=== PATIENT | male | born 1990 | race Caucasian/White ===

== ENCOUNTER 2017-07-09 21:03 | Inpatient (IN) | payer OTHER ==
--- NOTE | 2017-07-09 22:19 | ED ---
Psych HPI - General Chief Complaint: Psychiatric Symptoms Stated Complaint: Mental health/Suicide attempt Time Seen by Provider: 07/09/17 21:24 Source: patient, family Mode of arrival: ambulatory - History of Present Illness Initial Comments: This 26-year-old white male presents with a complaint of some depression. It is been present over the last month or so. It is been worse over the past 3 days. The ex-girlfriend and his child's mother relates that she went over to his house yesterday and found a gun that was not loaded but there was in remission close by. She then went over there tonight and found that the car was running in the garage that was closed. He apparently made a makeshift noose as well. He does complain of depression which is been worse over the last day and complains of suicidal ideations with obvious plan. He is very truthful on evaluation and not very talkative had much of history is obtained per his ex-girlfriend. He was tried on Cymbalta about this apparently seemed to make his symptoms worse. There's been no drugs or alcohol. His abdomen multiple life stressors including breakup with his ex-girlfriend and work- related issues. He denies any medical complaints currently. - Related Data Home Medications Medication Instructions Recorded Confirmed Citalopram Hydrobromide [CeleXA] 20 mg PO HS 07/09/17 07/09/17 Allergies Allergy/AdvReac Type Severity Reaction Status Date / Time No Known Allergies Allergy Verified 07/09/17 22:21 Review of Systems ROS Statement: Those systems with pertinent positive or pertinent negative responses have been documented in the HPI. ROS Other: All systems not noted in ROS Statement are negative. Past Medical History Past Medical History: No Reported History History of Any Multi-Drug Resistant Organisms: None Reported Past Surgical History: No Surgical Hx Reported Past Psychological History: Depression Smoking Status: Current some day smoker Past Alcohol Use History: None Reported Past Drug Use History: None Reported General Exam - General Exam Comments Initial Comments: GENERAL: The patient is well nourished and well hydrated. VITAL SIGNS: Heart rate, blood pressure, respiratory rate reviewed as recorded in nurse's notes. EYES: Pupils are round and reactive. Extraocular movements are intact. No conjunctival / lid redness or swelling. ENT: No external evidence of injury, swelling, or ecchymosis. Airway is patent. Throat is clear. NECK: Nontender. No swelling or evidence of injury. No subcutaneous emphysema. Trachea is midline. No thyroid mass. HEART: Regular rate and rhythm. Good peripheral pulses. LUNGS/CHEST: Breath sounds clear and equal bilaterally. No rales, rhonchi, or wheezes. No ecchymosis, subcutaneous emphysema, or tenderness. ABDOMEN: Abdomen soft without tenderness. No palpable masses or organomegaly. No peritoneal signs. No abdominal wall swelling or ecchymosis. EXTREMITIES: No extremity tenderness. Normal muscle tone and function. No thoracolumbar tenderness. NEUROLOGIC: Sensation is grossly intact. Cranial nerve exam reveals face is symmetrical, tongue is midline, speech is clear. SKIN: No abrasions or ecchymosis is noted. No induration or masses noted. PSYCHIATRIC: Alert and oriented. Patient is tearful and there is a very flat affect. Limitations: no limitations Course Vital Signs 07/09/17 21:14 Temperature 98.2 F Pulse Rate 84 Respiratory 18 Rate Blood Pressure 138/81 O2 Sat by Pulse 98 Oximetry Medical Decision Making - Medical Decision Making The patient was seen and examined. All diagnostics were reviewed. Is felt as though he would benefit from further psychiatric evaluation and treatment. He is cleared for further psychiatric intervention. The case is discussed with the psychiatric nurse and they would like to admit him to the psychiatric floor for further treatment. Is felt as though this is an excellent plan. Is felt as though he does need significant psychiatric care at this time. - Lab Data Lab Results 07/09/17 Range/Units 21:50 Urine Opiates Screen Not Detected (NotDetected) Ur Oxycodone Screen Not Detected (NotDetected) Urine Methadone Screen Not Detected (NotDetected) Ur Propoxyphene Screen Not Detected (NotDetected) Ur Barbiturates Screen Not Detected (NotDetected) U Tricyclic Antidepress Not Detected (NotDetected) Ur Phencyclidine Scrn Not Detected (NotDetected) Ur Amphetamines Screen Not Detected (NotDetected) U Methamphetamines Scrn Not Detected (NotDetected) U Benzodiazepines Scrn Not Detected (NotDetected) Urine Cocaine Screen Not Detected (NotDetected) U Marijuana (THC) Screen Not Detected (NotDetected) Disposition Clinical Impression: Major depression, Suicidal ideation Disposition: ADMITTED IP TO THIS HOSP Condition: Fair Time of Disposition: 00:35 Decision Date: 07/10/17 Decision Time: 00:35
[2017-07-10] MEDS ORDERED: ACETAMINOPHEN TAB 325 MG TAB PO PRN (04:44)
[2017-07-10] MEDS ORDERED: MAG HYDROX/AL HYDROX/SIMETH 30 ML CUP PO PRN (04:44)
[2017-07-10] MEDS ORDERED: MAGNESIUM HYDROXIDE 2,400 MG/10 ML CUP PO PRN (04:44)
[2017-07-10] MEDS: NICOTINE 7MG/24HR PATCH TRANSDERM SCH (08:44)
[2017-07-10 09:31] LABS: Basophils % (A) 0 %; CH 28.7; CHCM 34.4; Eosinophils # (A) 0.1 k/uL (0-0.7); Eosinophils % (A) 1 %; HCT 40.1 % (39.0-53.0); HDW 2.51; HGB 13.2 gm/dL (13.0-17.5); Luc # (Auto) 0.14; Luc % (Auto) 2; Lymphocytes # (A) 1.7 k/uL (1.0-4.8); Lymphocytes % (A) 28 %; MCH 27.6 pg (25.0-35.0); MCHC 32.9 g/dL (31.0-37.0); MCV 83.8 fL (80.0-100.0); Mean Platelet Volume 8.6; Monocytes # (A) 0.3 k/uL (0-1.0); Monocytes % (A) 4 %; Neutrophils % (A) 64 %; RBC 4.78 m/uL (4.30-5.90); RDW 14.6 % (11.5-15.5); WBC 6.2 k/uL (3.8-10.6); WBC (Perox) 5.98
[2017-07-10 09:40] LABS: ALT 31 U/L (21-72); AST 18 U/L (17-59); Alkaline Phosphatase 35 U/L (38-126); Anion Gap 9 mmol/L; Blood Urea Nitrogen 11 mg/dL (9-20); Calcium 9.3 mg/dL (8.4-10.2); Carbon Dioxide 28 mmol/L (22-30); Chloride 106 mmol/L (98-107); Glucose 92 mg/dL (74-99); Non-African American GFR(MDRD) >60 (>60 ml/min/1.73 sqM); Sodium 143 mmol/L (137-145); Total Bilirubin 0.4 mg/dL (0.2-1.3); Total Protein 7.1 g/dL (6.3-8.2)
[2017-07-10] MEDS: LORazepam 1 MG TAB PO PRN ×2 (11:04→19:58)
[2017-07-10] MEDS: CITALOPRAM HYDROBROMIDE 20 MG TAB PO SCH (19:57)
--- NOTE | 2017-07-10 20:28 | P.CONS ---
History of Present Illness - Reason for Consult Consult date: 07/10/17 - Chief Complaint Severe depression. - History of Present Illness This is a constant a 26-year-old white male who has been struggling with deek. He is somewhat of a p chest pain. Cymbalta has been used in the pas no other typical chronic medical illness no substance abuse stated.I am consulted for medical H&P and management. Review of Systems Constitutional: Denies chills, Denies fever Eyes: denies blurred vision, denies pain Ears, nose, mouth and throat: Denies headache, Denies sore throat Cardiovascular: Denies chest pain, Denies shortness of breath Musculoskeletal: Denies myalgias Integumentary: Denies pruritus, Denies rash Neurological: Denies numbness, Denies weakness Psychiatric: Reports as per HPI Past Medical History Past Medical History: No Reported History History of Any Multi-Drug Resistant Organisms: None Reported Past Surgical History: No Surgical Hx Reported Smoking Status: Current some day smoker Medications and Allergies Home Medications Medication Instructions Recorded Confirmed Type Citalopram Hydrobromide [CeleXA] 20 mg PO HS 07/09/17 07/10/17 History Allergies Allergy/AdvReac Type Severity Reaction Status Date / Time No Known Allergies Allergy Verified 07/10/17 04:38 Physical Exam Vitals: Vital Signs Temp Pulse Pulse Resp BP BP Pulse Ox 07/10/17 00:51 98.1 F 75 16 126/74 99 07/10/17 00:41 98.2 F 82 16 129/79 99 07/09/17 21:14 98.2 F 84 18 138/81 98 - Constitutional General appearance: no acute distress - EENT Eyes: EOMI - Neck Neck: no lymphadenopathy - Respiratory Respiratory: bilateral: CTA - Cardiovascular Rhythm: regular Heart sounds: normal: S1, S2 - Gastrointestinal General gastrointestinal: soft, tenderness - Neurologic Neurologic: CNII-XII intact, focal deficits - Psychiatric Psychiatric: A&O x's 3, appropriate affect Results CBC & Chem 7: 07/10/17 08:47 07/10/17 08:47 Labs: Abnormal Lab Results - Last 24 Hours (Table) 07/10/17 Range/Units 08:47 Alkaline Phosphatase 35 L (38-126) U/L Assessment and Plan (1) Major depression Status: Acute (2) Suicidal ideation Status: Acute Plan: Given his actions, he is appropriately admitted to the mental health unit. We will follow appropriately. Reconcile Medications from medical perspective We'll continue to follow appropriate
--- NOTE | 2017-07-10 22:14 | P.HP ---
Psychiatric H&P - . H&P Date: 07/10/17 History & Physical: Allergies Allergy/AdvReac Type Severity Reaction Status Date / Time No Known Allergies Allergy Verified 07/10/17 04:38 Vital Signs Temp 98.1 F 07/10/17 00:51 Pulse 75 07/10/17 00:51 Resp 16 07/10/17 00:51 BP 126/74 07/10/17 00:51 Pulse Ox 99 07/10/17 00:51 Laboratory Last Values WBC 6.2 k/uL (3.8-10.6) 07/10/17 08:47 RBC 4.78 m/uL (4.30-5.90) 07/10/17 08:47 Hgb 13.2 gm/dL (13.0-17.5) 07/10/17 08:47 Hct 40.1 % (39.0-53.0) 07/10/17 08:47 MCV 83.8 fL (80.0-100.0) 07/10/17 08:47 MCH 27.6 pg (25.0-35.0) 07/10/17 08:47 MCHC 32.9 g/dL (31.0-37.0) 07/10/17 08:47 RDW 14.6 % (11.5-15.5) 07/10/17 08:47 Plt Count 226 k/uL (150-450) 07/10/17 08:47 Neutrophils % 64 % 07/10/17 08:47 Lymphocytes % 28 % 07/10/17 08:47 Monocytes % 4 % 07/10/17 08:47 Eosinophils % 1 % 07/10/17 08:47 Basophils % 0 % 07/10/17 08:47 Neutrophils # 4.0 k/uL (1.3-7.7) 07/10/17 08:47 Lymphocytes # 1.7 k/uL (1.0-4.8) 07/10/17 08:47 Monocytes # 0.3 k/uL (0-1.0) 07/10/17 08:47 Eosinophils # 0.1 k/uL (0-0.7) 07/10/17 08:47 Basophils # 0.0 k/uL (0-0.2) 07/10/17 08:47 Urine Opiates Screen Not Detected (NotDetected) 07/09/17 21:50 Ur Oxycodone Screen Not Detected (NotDetected) 07/09/17 21:50 Urine Methadone Screen Not Detected (NotDetected) 07/09/17 21:50 Ur Propoxyphene Screen Not Detected (NotDetected) 07/09/17 21:50 Ur Barbiturates Screen Not Detected (NotDetected) 07/09/17 21:50 U Tricyclic Antidepress Not Detected (NotDetected) 07/09/17 21:50 Ur Phencyclidine Scrn Not Detected (NotDetected) 07/09/17 21:50 Ur Amphetamines Screen Not Detected (NotDetected) 07/09/17 21:50 U Methamphetamines Scrn Not Detected (NotDetected) 07/09/17 21:50 U Benzodiazepines Scrn Not Detected (NotDetected) 07/09/17 21:50 Urine Cocaine Screen Not Detected (NotDetected) 07/09/17 21:50 U Marijuana (THC) Screen Not Detected (NotDetected) 07/09/17 21:50 HPI: Patient is a 26 year old male who was admitted to the inpatient unit after his discovered him home with 2 guns laid in the kitchen, his truck turned on and the garage door shut, and a noose found in the house. Patient attempts that he devised all three methods as means to suicide but is unable to clearly detail his rationale into going to such extensive measures to secure three lethal methods. 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 Patient states he and said ex-girlfriend dated for approximately 6-years with her slowly moving her belongings out. It was recently that she finished moving the last of such out when patient felt "pushed over the edge." Patient is able to endorse past depressive episodes in life but none that ever had suicidal thoughts and denies any prior suicide attempts. He denies any symptoms suggestive of a past manic or hypomanic episode. He denies any significant physical or sexual trauma history. When asked why his girlfriend terminated their relationship patient begins to sob and requires multiple prompts to regain his composure. He is unable to fully answer the question suggesting she was unfaithful to him and has found someone else. Due to the severity of his anxious distress, the interview was terminated at this point as patient was distraught. 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 environmental: at home with daughter : denies congregational: Yazidi access t o firearms: yes (resolved) sexual orientation: heterosexual safety at home: yes MENTAL STATUS EXAM: Appearance: alert, well groomed, appears stated age, steady gait Behavior: severe PMA, no abnormal movements Attitude: cooperative Speech: normal rate, rhythm, fluency, articulation; and prosody, volume is mildly decreased; primary language: Sinhala Mood: distraught, tearful Affect: congruent with mood with tight, constricted range Thought processes: linear, organized Thought content: patient does not appear to be responding to internal stimuli; patient denies auditory and visual hallucinations, no delusions and is not exhibiting in overt signs of psychosis, denies SI/HI at present but is unable to identify any change in what has happened or any desire to live Insight: poor, patient does not understand why he is so anxious and angry all the time and most recently lost control Judgment: poor, patient is an eminent danger to himself as noted in HPI Cognitive: oriented to all 4 spheres, normal intelligence STRENGTHS/WEAKNESSES: Support of family including ex-girlfriend despite cirucmstances, stable employment/poor coping skills and difficulty with anger 07/10/17 21:53 Assessment and Plan (1) Major depressive disorder, recurrent episode, severe with anxious distress Status: Acute Plan: -continue Celexa 20-mg PO QAM -continue Ativan 1-mg PO TID PRN anxiety or panic attacks -SW will follow up with ex- for additional collateral to asses the pros/ cons of a family meeting with her/daughter given patient's current state -continue hospitalization, patient is high risk for suicide Time with Patient: Greater than 30
[2017-07-11] MEDS: NICOTINE 7MG/24HR PATCH TRANSDERM SCH (08:28)
[2017-07-11] MEDS: LORazepam 1 MG TAB PO PRN ×2 (13:22→21:12)
--- NOTE | 2017-07-11 16:57 | P.PN ---
Subjective Principal diagnosis: Major depressive disorder, severe, recurrent with anxious distress Patient had great difficult with sleep last night and slept most of the day. Staff attempted to prompt patient many times to participate in groups but patient refused. Patient spoke very little during his initial interview stating he feels hopeless and has nothing to live for at this time. Later in the evening , patient was more alert. 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 He states the [id number] between shifts every two weeks is hard to manage and has caused problems at work and home. Patient is agreeable to trial of Provigil. Risk/Benefits were discussed. Patient has no new concerns at this time. Objective - Vital Signs Vital signs: Vital Signs Temp 98.2 F 07/11/17 06:59 Pulse 69 07/11/17 06:59 Resp 16 07/11/17 06:59 BP 101/57 07/11/17 06:59 Pulse Ox 99 07/10/17 00:51 - Labs CBC & Chem 7: 07/10/17 08:47 07/10/17 08:47 Assessment and Plan (1) Major depressive disorder, recurrent episode, severe with anxious distress Narrative/Plan: -Continue Celexa 20-mg PO QAM -Continue Ativan 1-mg PO TID PRN; patient encouraged to ask for this if he needs it Status: Acute (2) Circadian rhythm sleep disorder, shift work type Narrative/Plan: Start Provigil 100-mg PO QAM with plan to increase to 200-mg PO QAM Status: Acute Plan: -SW will follow up with ex- for additional collateral to asses the pros/ cons of a family meeting with her/daughter given patient's current state ( pending) Continue hospitalization, patient is high risk for suicide
[2017-07-11] MEDS: CITALOPRAM HYDROBROMIDE 20 MG TAB PO SCH (21:12)
[2017-07-12] MEDS ORDERED: MODAFINIL 100 MG TAB PO SCH (09:00)
[2017-07-12] MEDS: LORazepam 1 MG TAB PO PRN ×2 (09:29→17:28)
--- NOTE | 2017-07-12 20:55 | P.PN ---
Subjective Principal diagnosis: Major depressive disorder, severe, recurrent with anxious distress Patient had great difficult with sleep last night and slept most of the day. Staff attempted to prompt patient many times to participate in groups but patient refused. Patient spoke very little during his initial interview stating he feels hopeless and has nothing to live for at this time. Later in the evening , patient was more alert. 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 He states the [id number] between shifts every two weeks is hard to manage and has caused problems at work and home. Patient is agreeable to trial of Provigil. Risk/Benefits were discussed. Patient has no new concerns at this time. Objective - Vital Signs Vital signs: Vital Signs Temp 98.3 F 07/12/17 06:56 Pulse 83 07/12/17 17:28 Resp 18 07/12/17 06:56 BP 121/83 07/12/17 17:28 Pulse Ox 99 07/10/17 00:51 - Psychiatric Psychiatric Comment(s): Appearance: alert, well groomed, appears stated age, steady gait Behavior: psychomotor retardation, fair eye contact, no abnormal movements Attitude: cooperative Speech: normal rate, rhythm, fluency, articulation; and prosody; volume is low and soft; primary language: Latvian Mood: downcast, gloomy Affect: incongruent with stated mood, patient's affect is much brighter and more reactive today Thought processes: linear, organized Thought content: patient does not appear to be responding to internal stimuli; patient denies auditory and visual hallucinations, no delusions and is not exhibiting in overt signs of psychosis, denies SI/HI Insight: improving Judgment: improving Cognitive: oriented to all 4 spheres, normal intelligence - Labs CBC & Chem 7: 07/10/17 08:47 07/10/17 08:47 Assessment and Plan (1) Major depressive disorder, recurrent episode, severe with anxious distress Narrative/Plan: Discontinue Celexa 20-mg PO QAM -Start Zoloft 50-mg PO QAM -Continue Ativan 1-mg PO TID PRN -discontinue Provigil, start Ritalin 10-mg PO AC-breakfast + Ritalin 5-mg PO AC- lunch Status: Acute (2) Circadian rhythm sleep disorder, shift work type Narrative/Plan: Start Ritalin as noted for MDD Status: Acute Plan: 12-lead EKG ordered SW will follow up with ex- for additional collateral to asses the pros/cons of a family meeting with her/daughter given patient's current state (pending) Continue hospitalization, patient is high risk for suicide Time with Patient: Greater than 30
[2017-07-13] MEDS: SERTRALINE 50 MG TAB PO SCH (08:02)
[2017-07-13] MEDS: METHYLPHENIDATE HCL 10 MG TAB PO SCH (08:02)
[2017-07-13] MEDS: METHYLPHENIDATE HCL 5 MG TAB PO SCH (12:35)
--- NOTE | 2017-07-13 20:02 | P.PN ---
Subjective Principal diagnosis: Major depressive disorder, severe, recurrent with anxious distress Patient continues to show marked improvements in his mood, affect, social interactions with staff and peers and overall looks far less glum since starting Ritalin. Patient reports he was able to get out of bed today and not feel overwhelmed by his depression and anxiety. He has been attending almost all group and recreational activities. Patient's only complaint is that he notes a mild to moderate crashing effect around 5:00PM that lasts a few hours and for the most then goes away. Patient has had no GI issues or felt jittery since starting Zoloft. Patient denies any side effects and reports he is eating and drinking well. Objective - Vital Signs Vital signs: Vital Signs Temp 97.6 F 07/13/17 04:57 Pulse 102 H 07/13/17 04:57 Resp 16 07/13/17 04:57 BP 117/69 07/13/17 04:57 Pulse Ox 99 07/10/17 00:51 - Labs CBC & Chem 7: 07/10/17 08:47 07/10/17 08:47 Assessment and Plan (1) Major depressive disorder, recurrent episode, severe with anxious distress Narrative/Plan: -Continue Zoloft 50-mg PO QAM -Continue Ativan 1-mg PO TID PRN although patient has only used 3-4 doses during this entire hospital course, stop at discharge -Increase Ritalin to 10-mg PO AC breakfast + 5-mg Ritalin PO AC lunch + 5-mg Ritalin PO PC lunch (2:00pm) -Plan to discharge on 07/16/2017, patient -Importance of medication compliance, risks/benefits/side effects, keeping medications at home hidden/safe away from children, and nuisances regarding Ritalin being a schedule II controlled substance discussed at length with patient and how that effects refills, OP follow up visits, and other general information discussed at length, patient voiced full understanding Status: Acute (2) Circadian rhythm sleep disorder, shift work type Status: Acute
[2017-07-14] MEDS: METHYLPHENIDATE HCL 10 MG TAB PO SCH (07:58)
[2017-07-14] MEDS: SERTRALINE 50 MG TAB PO SCH (07:58)
[2017-07-14] MEDS: METHYLPHENIDATE HCL 5 MG TAB PO SCH (12:35)
[2017-07-14] MEDS ORDERED: METHYLPHENIDATE HCL 5 MG TAB PO SCH (13:30)
--- NOTE | 2017-07-14 13:44 | P.PN ---
Progress Note - Text Interval history: The patient is found in the hallway he follows me to an interview room. The patient was admitted for symptoms of depression. He is being treated with Zoloft and also being treated with Ritalin for shift work sleep disorder. He reports his mood is good he feels that things have improve while here on the mental health unit. He feels he sleeping well appetite is stable. He has no questions or concerns regarding his medications. He has been participating in groups. Mental status exam: The patient is a thin male appearing his stated age he wears eyeglasses he has a goatee. eye contact is appropriate speech is fluent spontaneous nonpressured. He reports his mood is better affect is more euthymic and congruent to reported mood. He does seem distractible at times and is somewhat stimulus bound. He demonstrates no tangential thinking loose associations or flight of ideas. He is reporting no suicidal or homicidal ideation intent or plan he endorses no hallucinations or specific delusions. There is no observed evidence of psychosis. Insight and judgment improving. He is oriented to person place and date. There is no verbal or physical aggressiveness observed. Plan: Major depressive disorder, shift work sleep disorder, the patient will continue on his current psychotropic medications. We will monitor him for safety and encourage his continued participation in the milieu. Vital signs reviewed.
[2017-07-15] MEDS: METHYLPHENIDATE HCL 10 MG TAB PO SCH (07:55)
[2017-07-15] MEDS: SERTRALINE 50 MG TAB PO SCH (08:51)
[2017-07-15] MEDS: METHYLPHENIDATE HCL 5 MG TAB PO SCH (12:22)
--- NOTE | 2017-07-15 16:04 | P.PN ---
Progress Note - Text Interval history: The patient is found in the hallway he follows me to an interview room. He reports his mood has been good. He participated in a family meeting facilitated by social work with his ex-girlfriend. He felt that went well. Social work notes were reviewed. The notes indicated that he may have a faults belief that him and his ex-girlfriend we'll reconcile. The ex- girlfriend also warned that he may be minimizing symptoms. The patient states his sleep is been stable he has no questions or concerns regarding his psychotropic medications. He has been participating in groups and meals. Mental status exam: The patient is a thin male he seated calmly in the chair he is pleasant cooperative. He reports his mood is good his affect is euthymic. He denies having any suicidal or homicidal ideation intent or plan. He expresses future oriented thinking. He endorses no auditory or visual hallucinations or specific delusions there is no observed evidence of psychosis. He does not appear hypomanic or manic. He demonstrates no verbal or physical aggressiveness during this session. He remains oriented to person place and date. Thought process is linear he demonstrates no tangential thinking loose associations or flight of ideas. Plan: The patient will continue on the Zoloft and Ritalin. He appears to be stabilizing on the mental health unit. He is encouraged to continue participating in the milieu we will continue to monitor him for safety.
[2017-07-16 06:46] VITALS: BP 106/55; PULSE 51; RESP 16; TEMP 98.1
[2017-07-16] MEDS: SERTRALINE 50 MG TAB PO SCH (08:32)
[2017-07-16] MEDS: METHYLPHENIDATE HCL 10 MG TAB PO SCH (08:33)
[2017-07-16] MEDS: METHYLPHENIDATE HCL 5 MG TAB PO SCH (12:04)
== END 2017-07-16 17:18 | disposition home or self-care (01) | DRG 885 ==
LOC: EC 21:03 → 3MHU 07-10 00:25
PROVIDERS: ADMIT Psychiatry & Neurology Psychiatry; ATTEND Psychiatry & Neurology Psychiatry
DX: F33.2 Major depressive disorder, recurrent severe without psychotic features (principal); R45.851 Suicidal ideations; F17.200 Nicotine dependence, unspecified, uncomplicated; G47.26 Circadian rhythm sleep disorder, shift work type; Z79.899 Other long term (current) drug therapy
CPT/HCPCS: 80053; 80306; 82075; 84443; 85025; 93005; 99284

== ENCOUNTER 2017-07-28 00:26 | Inpatient (IN) | payer MEDICAID, OTHER ==
--- NOTE | 2017-07-28 01:10 | ED ---
Psych HPI - General Chief Complaint: Psychiatric Symptoms Stated Complaint: Petition Time Seen by Provider: 07/28/17 00:45 Source: patient, police Mode of arrival: ambulatory - History of Present Illness Initial Comments: Patient is 26-year-old man who states that he was driving tonight when he was police. He describes that he was feeling suicidal to them and they brought him here to have psychiatric evaluation. The patient notes that he has had at least a couple of weeks of feeling very depressed and suicidal. He had been admitted here recently for the same area he states that he continues to take the medications that they had prescribed but they don't seem to be helping. The patient did not have the outpatient follow-up that was recommended. Patient denies hallucinations or homicidal ideation. MD Complaint: suicidal ideation, feels depressed Onset/Timin -: week(s) Associated Psychiatric Symptoms: depression, suicidal ideation History of same: Yes Quality: changing over time Improves With: none Worsens With: none Associated Symptoms: denies other symptoms - Related Data Previous Rx's Medication Instructions Recorded Methylphenidate HCl [Ritalin] 5 mg PO AC-LUNCH #7 tablet 07/16/17 Methylphenidate HCl [Ritalin] 10 mg PO AC-BRKFST #14 tab 07/16/17 Sertraline [Zoloft] 50 mg PO DAILY #14 tab 07/16/17 Allergies Allergy/AdvReac Type Severity Reaction Status Date / Time No Known Allergies Allergy Verified 07/28/17 02:30 Review of Systems ROS Statement: Those systems with pertinent positive or pertinent negative responses have been documented in the HPI. ROS Other: All systems not noted in ROS Statement are negative. Eyes: Denies: vision change Respiratory: Denies: cough, dyspnea Cardiovascular: Denies: chest pain Gastrointestinal: Denies: abdominal pain, vomiting, diarrhea Musculoskeletal: Denies: back pain Neurological: Denies: headache Psychiatric: Reports: depression, suicidal thoughts. Denies: anxiety, auditory hallucinations, homicidal thoughts Past Medical History Past Medical History: No Reported History History of Any Multi-Drug Resistant Organisms: None Reported Past Surgical History: No Surgical Hx Reported Past Psychological History: Depression Smoking Status: Never smoker Past Alcohol Use History: Occasional Past Drug Use History: None Reported General Exam Limitations: no limitations General appearance: alert, in no apparent distress Head exam: Present: atraumatic Eye exam: Present: normal appearance. Absent: scleral icterus, conjunctival injection Respiratory exam: Present: normal lung sounds bilaterally. Absent: respiratory distress, wheezes, rales, rhonchi, stridor Cardiovascular Exam: Present: regular rate, normal rhythm, normal heart sounds. Absent: systolic murmur, diastolic murmur, rubs, gallop GI/Abdominal exam: Present: soft. Absent: distended, tenderness, guarding, rebound Extremities exam: Present: normal inspection Neurological exam: Present: alert, normal gait Psychiatric exam: Present: normal affect, depressed, suicidal ideation. Absent : anxious, flat affect, manic, homicidal ideation Skin exam: Present: warm, dry, intact, normal color. Absent: rash Course Vital Signs 07/28/17 00:30 Temperature 97.7 F Pulse Rate 63 Respiratory 18 Rate Blood Pressure 133/75 O2 Sat by Pulse 98 Oximetry Medical Decision Making - Lab Data Result diagrams: 07/29/17 08:13 07/29/17 08:13 Disposition Clinical Impression: Suicidal ideation, Major depression Disposition: TRANSFER TO PSYCH HOSP/UNIT Condition: Good
[2017-07-28] MEDS ORDERED: MAGNESIUM HYDROXIDE 2,400 MG/10 ML CUP PO PRN (02:26)
[2017-07-28] MEDS ORDERED: MAG HYDROX/AL HYDROX/SIMETH 30 ML CUP PO PRN (02:26)
[2017-07-28] MEDS ORDERED: ACETAMINOPHEN TAB 325 MG TAB PO PRN (02:26)
[2017-07-28] MEDS ORDERED: LORazepam 1 MG TAB PO PRN (02:26)
[2017-07-28 02:45] VITALS: BMI 22.8
[2017-07-28] MEDS ORDERED: SERTRALINE 50 MG TAB PO SCH (09:00)
[2017-07-28 14:12] LABS: Appearance,Urine Cloudy (Clear); Bacteria,Urine Few /hpf; Bilirubin,Urine Negative (Negative); Glucose,Urine (UA) Negative (Negative); Ketones,Urine Negative (Negative); Leukocyte Esterase,Urine Large (Negative); Mucus,Urine Many /hpf; Nitrite,Urine Negative (Negative); PH, Urine 5.5 (5.0-8.0); Particle Count 20367; Protein,Urine Trace (Negative); RBC,Urine 5 /hpf (0-5); Specific Gravity,Urine 1.015 (1.001-1.035); Squamous Epithelial Cell,Urine 3 /hpf (0-4); UA Billing (MACRO vs. MICRO) MICRO; Urobilinogen,Urine <2.0 mg/dL (<2.0); WBC,Urine 23 /hpf (0-5)
--- NOTE | 2017-07-28 14:33 | P.CONS ---
History of Present Illness - Reason for Consult Medical clearance - History of Present Illness 26-year-old gentleman came in for suicidal ideation and depression patient denied any complaint at this point of time. Patient denied any fever, chills, nausea, vomiting, dysuria denied any significant IV drug use. Review of Systems REVIEW OF SYSTEMS: CONSTITUTIONAL: No fever, no malaise, no fatigue. HEENT: No recent visual problems or hearing problems. Denied any sore throat. CARDIOVASCULAR: No chest pain, orthopnea, PND, no palpitations, no syncope. PULMONARY: No shortness of breath, no cough, no hemoptysis. GASTROINTESTINAL: No diarrhea, no nausea, no vomiting, no abdominal pain. Normoactive bowel sounds. NEUROLOGICAL: No headaches, no weakness, no numbness. HEMATOLOGICAL: Denies any bleeding or petechiae. GENITOURINARY: Denies any burning micturition, frequency, or urgency. MUSCULOSKELETAL/RHEUMATOLOGICAL: Denies any joint pain, swelling, or any muscle pain. ENDOCRINE: Denies any polyuria or polydipsia. The rest of the 14-point review of systems is negative. Past Medical History Past Medical History: No Reported History History of Any Multi-Drug Resistant Organisms: None Reported Past Surgical History: No Surgical Hx Reported Past Psychological History: Depression Smoking Status: Never smoker Past Alcohol Use History: Occasional Past Drug Use History: None Reported Medications and Allergies Home Medications Medication Instructions Recorded Confirmed Type Methylphenidate HCl [Ritalin] 5 mg PO AC-LUNCH #7 tablet 07/16/17 07/28/17 Rx Methylphenidate HCl [Ritalin] 10 mg PO AC-BRKFST #14 tab 07/16/17 07/28/17 Rx Sertraline [Zoloft] 50 mg PO DAILY #14 tab 07/16/17 07/28/17 Rx Allergies Allergy/AdvReac Type Severity Reaction Status Date / Time No Known Allergies Allergy Verified 07/28/17 02:30 Physical Exam Vitals: Vital Signs Temp Pulse Pulse Resp BP BP Pulse Ox 07/28/17 02:33 97.1 F L 58 L 16 118/74 07/28/17 02:15 97.5 F L 67 16 105/70 100 07/28/17 00:30 97.7 F 63 18 133/75 98 Intake and Output 09/29/17 09/30/17 09/30/17 22:59 06:59 14:59 Other: Weight 70.307 kg PHYSICAL EXAMINATION: GENERAL: The patient is alert and oriented x3, not in any acute distress. Well developed, well nourished. HEENT: Pupils are round and equally reacting to light. EOMI. No scleral icterus. No conjunctival pallor. Normocephalic, atraumatic. No pharyngeal erythema. No thyromegaly. CARDIOVASCULAR: S1 and S2 present. No murmurs, rubs, or gallops. PULMONARY: Chest is clear to auscultation, no wheezing or crackles. ABDOMEN: Soft, nontender, nondistended, normoactive bowel sounds. No palpable organomegaly. MUSCULOSKELETAL: No joint swelling or deformity. EXTREMITIES: No cyanosis, clubbing, or pedal edema. NEUROLOGICAL: Gross neurological examination did not reveal any focal deficits. SKIN: No rashes. Results Labs: Abnormal Lab Results - Last 24 Hours (Table) 07/28/17 Range/Units 13:40 Urine Protein Trace H (Negative) Ur Leukocyte Esterase Large H (Negative) Urine WBC 23 H (0-5) /hpf Urine Bacteria Few H (None) /hpf Urine Mucus Many H (None) /hpf Assessment and Plan Plan: #1 depression and suicidal ideation: Management as per primary service. #2 nicotine abuse counseling was provided #3 alcohol abuse counseling was provided Patient is known to have any major medical problems no further recommendations we will sign off at this point of time causes back if needed
--- NOTE | 2017-07-28 15:57 | P.HP ---
Psychiatric H&P - . H&P Date: 07/28/17 History & Physical: Allergies Allergy/AdvReac Type Severity Reaction Status Date / Time No Known Allergies Allergy Verified 07/28/17 02:30 Vital Signs Temp 97.1 F L 07/28/17 02:33 Pulse 58 L 07/28/17 02:33 Resp 16 07/28/17 02:33 BP 118/74 07/28/17 02:33 Pulse Ox 100 07/28/17 02:15 Intake & Output 07/27/17 07/28/17 07/28/17 18:59 06:59 18:59 Weight 70.307 kg Laboratory Last Values Urine Color Yellow 07/28/17 13:40 Urine Appearance Cloudy (Clear) 07/28/17 13:40 Urine pH 5.5 (5.0-8.0) 07/28/17 13:40 Ur Specific [place] 1.015 (1.001-1.035) 07/28/17 13:40 Urine Protein Trace (Negative) H 07/28/17 13:40 Urine Glucose (UA) Negative (Negative) 07/28/17 13:40 Urine Ketones Negative (Negative) 07/28/17 13:40 Urine Blood Negative (Negative) 07/28/17 13:40 Urine Nitrite Negative (Negative) 07/28/17 13:40 Urine Bilirubin Negative (Negative) 07/28/17 13:40 Urine Urobilinogen <2.0 mg/dL (<2.0) 07/28/17 13:40 Ur Leukocyte Esterase Large (Negative) H 07/28/17 13:40 Urine RBC 5 /hpf (0-5) 07/28/17 13:40 Urine WBC 23 /hpf (0-5) H 07/28/17 13:40 Ur Squamous Epith Cells 3 /hpf (0-4) 07/28/17 13:40 Urine Bacteria Few /hpf (None) H 07/28/17 13:40 Urine Mucus Many /hpf (None) H 07/28/17 13:40 07/28/17 15:50 IDENTIFYING DATA: 26-year-old single male patient HPI: Patient admitted to the inpatient psychiatric unit on an involuntary basis , petition done by deputy sanchez verbalizing "Clovis advise me he was having a really bad night and was feeling suicidal. He said he wanted to kill himself." Patient states that he had thoughts of suicide yesterday. He states that the trigger was "I felt down." Regarding stressors he states recently work, bills and court upcoming regarding custody of his child. He states he does not have any visitation with his child right now on the last time he saw her was ordered on a month ago. He also talks about concern of losing his job, he states that he missed a week of work the last time he was here. He does admit to a little anxiety here and there and does describe himself as a worrier. He states that he came to the hospital because somebody called the police and they came to his place. PAST PSYCHIATRIC HISTORY:he did have recent admission here he says a few weeks ago for similar reason. He has been started on Zoloft which has given him a little benefit without side effects, he's been on 50 mg daily. He has no history of suicide attempts. PMH: Nonsignificant ALLERGIES: No known ALLERGIES MEDICATIONS: Tylenol when necessary, Maalox when necessary, Ativan when necessary, milk of magnesia when necessary, Zoloft CHEMICAL DEPENDENCY HISTORY: Patient states alcohol on occasion, it's never been a significant problem for him FAMILY PSYCHIATRIC HISTORY: None known at this time. FAMILY CHEMICAL DEPENDENCY HISTORY: Not known at this time. SOCIAL HISTORY: Reports that he graduated high school, did not do any college work. 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 He lives in his own home. No current relationship. He has never been . He states his 4-year-old daughter lives with her mom. MENTAL STATUS EXAM: He is alert and cooperative with the interview. Speech is fluent, not rapid or pressured. His mood is described as "neutral, down." His affect is restricted. He denies any hallucinations and denies any paranoid thoughts. He denies any current thoughts of suicide and denies any thoughts of harm to others. Cognitively appears very grossly intact. I do not note any significant disorientation or memory disturbance. His insight is adequate, judgment shows evidence of recent impairment. STRENGTHS/WEAKNESSES: Strengths-working; weaknesses-coping skills, multiple stressors INTELLECTUAL FUNCTIONING: Average IMPRESSIONS: Major depressive disorder, recurrent; generalized anxiety disorder PLAN: Patient will be admitted to the inpatient psychiatric unit [facility] on a voluntary basis. He is agreeable to sign an adult formal voluntary form. He will placed on SP 15 minute precautions. We will monitor regarding suicidal ideations. We'll titrate Zoloft up to 100 mg daily to help further with depression and anxiety. We will look into any support systems. We will continue to cover this patient for Dr. Ford through the weekend. We will get a baseline laboratory workup and medical consultation will be ordered. Estimated length of stay is 3-5 days. Prognosis is guarded.
[2017-07-29 08:40] LABS: Basophils % (A) 1 %; CH 29.3; CHCM 33.7; Eosinophils # (A) 0.1 k/uL (0-0.7); Eosinophils % (A) 2 %; HCT 40.7 % (39.0-53.0); HDW 2.49; HGB 13.2 gm/dL (13.0-17.5); Luc # (Auto) 0.12; Luc % (Auto) 2; Lymphocytes # (A) 2.1 k/uL (1.0-4.8); Lymphocytes % (A) 30 %; MCH 28.4 pg (25.0-35.0); MCHC 32.5 g/dL (31.0-37.0); MCV 87.2 fL (80.0-100.0); Mean Platelet Volume 9.1; Monocytes # (A) 0.3 k/uL (0-1.0); Monocytes % (A) 5 %; Neutrophils # (A) 4.4 k/uL (1.3-7.7); Neutrophils % (A) 62 %; RBC 4.67 m/uL (4.30-5.90); WBC 7.1 k/uL (3.8-10.6); WBC (Perox) 7.62
[2017-07-29 09:04] LABS: ALT 35 U/L (21-72); AST 18 U/L (17-59); Alkaline Phosphatase 36 U/L (38-126); Anion Gap 10 mmol/L; Blood Urea Nitrogen 11 mg/dL (9-20); Calcium 9.4 mg/dL (8.4-10.2); Carbon Dioxide 28 mmol/L (22-30); Chloride 105 mmol/L (98-107); Glucose 105 mg/dL (74-99); Non-African American GFR(MDRD) >60 (>60 ml/min/1.73 sqM); Potassium 3.6 mmol/L (3.5-5.1); Sodium 143 mmol/L (137-145); Total Bilirubin 0.2 mg/dL (0.2-1.3); Total Protein 7.1 g/dL (6.3-8.2)
[2017-07-29] MEDS: SERTRALINE 100 MG TAB PO SCH (09:05)
--- NOTE | 2017-07-29 13:19 | P.PN ---
Progress Note - Text Interval history: Patient seen in cross coverage today for Dr. Ford. He reports that he is feeling a little bit better. He states that earlier today he felt a little bit lightheaded but that is gone now. He did eat breakfast. He did take the Zoloft this morning. He states that this morning his pupils looked a little large to him. He does not verbalize any visual complaints. Mental status exam: He is alert and cooperative with the interview. His speech is fluent, not rapid or pressured. Thought processes organized. His mood he describes as a little better. He denies any thoughts of harm to self or others. No evidence of psychosis or agitation. Plan: Patient be maintained on current dose of Zoloft which has been titrated to 100 mg daily. We will monitor closely for any medication side effects. We' ll continue to monitor regarding any thoughts of suicide. Dr. Ford will initiate care this patient starting tomorrow.
[2017-07-30] MEDS: SERTRALINE 100 MG TAB PO SCH (08:30)
[2017-07-30] MEDS ORDERED: METHYLPHENIDATE HCL 10 MG TAB PO SCH (13:00)
[2017-07-30] MEDS: METHYLPHENIDATE HCL 10 MG TAB PO SCH (13:38)
--- NOTE | 2017-07-31 00:01 | P.PN ---
Subjective Principal diagnosis: Major depressive disorder, recurrent severe without psychotic features Patient reports feeling EDS likely due to Ritalin being discontinued. He reports that he did not follow up with psychiatry OP, and thought he'd be fine with the help of his aunt. Patient identifies the primary precipitating factor in his re-hospitalization as his ex-girlfriend serving him paperwork that she is filing for full custody of their daughter. Patient admits that after he learned of such he started coping with said stress by getting himself drunk every day. At present, patient cheers up during my interview as usual, but he appears and is observed to be far more depressed on the unit. Appearance: alert, sufficiently groomed, appears stated age, steady gait Behavior: no psychomotor agitation or psychomotor retardation, no abnormal movements, fair eye contact Attitude: cooperative Speech: normal rate, rhythm, fluency, articulation; volume; and prosody; primary language: Kiswahili Mood: anxious Affect: flat, immobile until challenged Thought processes: linear, organized Thought content: patient does not appear to be responding to internal stimuli; patient denies auditory and visual hallucinations, no delusions appreciated Insight: poor Judgment: poor Objective - Vital Signs Vital signs: Vital Signs Temp 97.7 F 07/30/17 07:16 Pulse 72 07/30/17 07:16 Resp 12 07/30/17 07:16 BP 112/58 07/30/17 07:16 Pulse Ox 100 07/29/17 00:14 Intake & Output 07/29/17 07/30/17 07/30/17 18:59 06:59 18:59 Weight 70.6 kg - Labs CBC & Chem 7: 07/29/17 08:13 07/29/17 08:13 Assessment and Plan (1) Major depressive disorder, recurrent episode, severe with anxious distress Status: Acute Plan: 1. continue Zoloft 100-mg PO QAM 2.restart Ritalin at 5-mg PO AC breakfast + 10-mg PO AC lunch 3. continue Ativan 1-mg PO TID PRN 4. continue hospitalization, patient is back in the hospital after a serious life event within the same month for suicidal ideation Time with Patient: Less than 30
[2017-07-31] MEDS: METHYLPHENIDATE HCL 5 MG TAB PO SCH (09:14)
[2017-07-31] MEDS: SERTRALINE 100 MG TAB PO SCH (09:14)
[2017-07-31] MEDS: METHYLPHENIDATE HCL 10 MG TAB PO SCH (12:05)
--- NOTE | 2017-07-31 22:48 | P.PN ---
Subjective Principal diagnosis: Major depressive disorder, recurrent severe without psychotic features Patient interviewed privately. Today's interview was a combination of psychotherapy and an attempt to evaluate patient's suicide risk. Much like his previous hospitalization, patient is able to gracefully conceal the depths of his depression and present himself as doing better than he truly is. This is not something I believe patient necessarily does consciously, making him a complicated case. Patient expressed today how hopeless and stuck he both feels and fears he will feel. He has no idea how he is going to cope with losing partial custody of his daughter, and he is able to identify multiple other major stressors in his life that are complicating his ability to do so. He is lonely. He lives alone His family do not live close, and he has been coping with alcohol. Several suggestions were offered on how patient could go about meeting a potential mate. Patient was also challenged on why he has distanced himself from his friends, patient was challenged on making excuses to hide his true reasons, shame. And then said shame was explored. Patient admitted at conclusion of interview that he can provide no answer to my question what reason he has to not leave the hospital and attempt to kill himself given the current situation. Appearance: alert, sufficiently groomed, appears stated age, steady gait Behavior: psychomotor agitation+++, no abnormal movements, fair eye contact Attitude: cooperative Speech: normal rate, rhythm, fluency, articulation; volume; and prosody; primary language: Japanese Mood: anxious Affect: constricted more mobile than previous exam Thought processes: linear, organized Thought content: patient does not appear to be responding to internal stimuli; patient denies auditory and visual hallucinations, no delusions appreciated Insight: poor Judgment: poor Objective - Vital Signs Vital signs: Vital Signs Temp 97.9 F 07/31/17 06:49 Pulse 49 L 07/31/17 06:49 Resp 16 07/31/17 06:49 BP 100/52 07/31/17 06:49 Pulse Ox 100 07/29/17 00:14 - Labs CBC & Chem 7: 07/29/17 08:13 07/29/17 08:13 Assessment and Plan (1) Major depressive disorder, recurrent episode, severe with anxious distress Narrative/Plan: 1. continue Zoloft 100-mg PO QAM 2.restart Ritalin at 5-mg PO AC breakfast + 10-mg PO AC lunch 3. continue Ativan 1-mg PO TID PRN 4. continue hospitalization, patient is back in the hospital after a serious life event within the same month for suicidal ideation Status: Acute Plan: 1. continue Zoloft 100-mg PO QAM 2. continue Ritalin at 5-mg PO AC breakfast + 10-mg PO AC lunch 3. continue Ativan 1-mg PO TID PRN 4. start Wellbutrin XL 150-mg PO QAM 5. continue hospitalization, patient is back in the hospital after a serious life event within the same month for suicidal ideation Time with Patient: Greater than 30
[2017-08-01] MEDS: METHYLPHENIDATE HCL 5 MG TAB PO SCH (09:02)
[2017-08-01] MEDS: buPROPion XL 150 MG TAB.ER.24H PO SCH (09:02)
[2017-08-01] MEDS: SERTRALINE 100 MG TAB PO SCH (09:02)
[2017-08-01] MEDS: METHYLPHENIDATE HCL 10 MG TAB PO SCH (13:04)
--- NOTE | 2017-08-01 21:45 | P.PN ---
Subjective Progress Note Date: 08/01/17 Principal diagnosis: Major depressive disorder, recurrent severe without psychotic features Interval History: Patient presents much more composed today than previous exams. He reports having a good family with his sister and parents and feels his medications are starting to kick in and work. His mood remains mildly anxious but his affect is much brighter than previous exams. He does report a phone conversation with his ex-girlfriend that was heated because she is "holding over him" her challenge for custody of their daughter. Discussed with patient on examining his relationship with ex-girlfriend and making decisions in his best interest to help him move forward with his life and succeed. During this and prior hospitalization patient has struggled to entertain the idea of moving forward without ex-girlfriend who herself is intermittently supportive and sends mixed signals about her desires for patient. Patient was challenged to envision a scenario moving forward without her in his life. By conclusion of interview, patient stated that he felt like he had a new perspective to consider and would think about it. Patient also reported a family event this coming Sunday, 2016, a fish bunn and requested discharge to attend. His entire extended family will be present. At this time, patient denies SI/HI/AVH. Mental Status: Appearance: alert, sufficiently groomed, appears stated age, steady gait Behavior: psychomotor agitation+, no abnormal movements, fair eye contact Attitude: cooperative Speech: normal rate, rhythm, fluency, articulation; volume; and prosody; primary language: Kazakh Mood: anxious Affect: bright more mobile than previous exam Thought processes: linear, organized Thought content: patient does not appear to be responding to internal stimuli; patient denies auditory and visual hallucinations, no delusions appreciated Insight: improving Judgment: improving Objective - Vital Signs Vital signs: Vital Signs Temp 98.2 F 08/01/17 01:09 Pulse 62 08/01/17 01:09 Resp 16 08/01/17 01:09 BP 127/74 08/01/17 01:09 Pulse Ox 100 07/29/17 00:14 - Labs CBC & Chem 7: 07/29/17 08:13 07/29/17 08:13 Assessment and Plan (1) Major depressive disorder, recurrent episode, severe with anxious distress Status: Acute Plan: 1. continue Zoloft 100-mg PO QAM 2. continue Ritalin at 5-mg PO AC breakfast + 10-mg PO AC lunch 3. continue Ativan 1-mg PO TID PRN 4. continue Wellbutrin XL 150-mg PO QAM 5. continue hospitalization, patient is back in the hospital after a serious life event within the same month for suicidal ideation Time with Patient: Greater than 30
[2017-08-02 06:42] VITALS: BP 99/55; PULSE 50; RESP 12; TEMP 97
[2017-08-02] MEDS: buPROPion XL 150 MG TAB.ER.24H PO SCH (08:41)
[2017-08-02] MEDS: SERTRALINE 100 MG TAB PO SCH (08:41)
[2017-08-02] MEDS: METHYLPHENIDATE HCL 5 MG TAB PO SCH (08:42)
[2017-08-02] MEDS: METHYLPHENIDATE HCL 10 MG TAB PO SCH (11:59)
--- NOTE | 2017-08-26 18:31 | P.DS ---
Providers Date of admission: 07/28/17 02:02 Expected date of discharge: 08/02/17 Attending physician: Martín Ford, Consults: 07/28/17 02:26 Consult Physician Routine Consulting Provider: Estuardo Cardenas Consult Reason/Comments: H&P and medical follow up Do you want consulting provider notified?: Yes, Notify in am Primary care physician: Estuardo Cardenas - Discharge Diagnosis(es) (1) Major depressive disorder, recurrent episode, severe with anxious distress Status: Acute Priority: High Pertinent Studies: HOSPITAL COURSE: * Legal status at discharge: Voluntary * Compliant with medications: Inpatient, yes but did not get scripts filled after most recent discharge * Reported adverse side effects: No * Require restraints/seclusion: No * Emergency Medication administered: No * Attend group, recreational, activity therapies: yes, required significant prompting Patient is a 26 year old male recently discharged and readmitted for SI. Patient reported that post discharge he returned home to find a subpoena for court, his ex-girlfriend is challenging him for full custody of their child. Patient states after several days of rumination, he started coping again with alcohol and became heavily intoxicated and made an impulsive suicidal statement and gesture that he posted and texted to ex-girlfriend. Patient was brought to hospital by police. During course, patient was much like initial presentation. He responded well to adjusted in Ritalin and Wellbutrin XL Patient quickly became more engaged in unit activities and at time of discharge , patient denied SI/HI/AVH. Patient will discharge home to aunt this time who will slowly help patient transition back into living independently. MENTAL STATUS EXAM: Appearance: alert, well groomed, appears stated age, steady gait Behavior: no psychomotor agitation or psychomotor retardation, no abnormal movements, fair eye contact Attitude: cooperative Speech: normal rate, rhythm, fluency, articulation, volume, and prosody; primary language: Romanian Mood: mildly anxious Affect: congruent, reactive Thought processes: linear Thought content: patient does not appear to be responding to internal stimuli; patient denies auditory and visual hallucinations, no delusions appreciated Insight: poor to fair (improving) Judgment: poor to fair (improving) Cognitive: oriented to all 3 spheres, average intelligence Discharge Medication List Methylphenidate HCl [Ritalin] 5 mg PO AC-BRKFST #14 tab 08/02/17 [Rx] Methylphenidate HCl [Ritalin] 10 mg PO AC-LUNCH #14 tab 08/02/17 [Rx] Sertraline [Zoloft] 100 mg PO DAILY #14 tab 08/02/17 [Rx] buPROPion XL [Wellbutrin XL] 150 mg PO DAILY #14 tab 08/02/17 [Rx] Patient Condition at Discharge: Good Plan - Discharge Summary New Discharge Prescriptions: New buPROPion XL [Wellbutrin XL] 150 mg PO DAILY #14 tab Methylphenidate HCl [Ritalin] 5 mg PO AC-BRKFST #14 tab Methylphenidate HCl [Ritalin] 10 mg PO AC-LUNCH #14 tab Sertraline [Zoloft] 100 mg PO DAILY #14 tab Discontinued Methylphenidate HCl [Ritalin] 10 mg PO AC-BRKFST #14 tab Methylphenidate HCl [Ritalin] 5 mg PO AC-LUNCH #7 tablet Sertraline [Zoloft] 50 mg PO DAILY #14 tab Discharge Medication List Methylphenidate HCl [Ritalin] 5 mg PO AC-BRKFST #14 tab 08/02/17 [Rx] Methylphenidate HCl [Ritalin] 10 mg PO AC-LUNCH #14 tab 08/02/17 [Rx] Sertraline [Zoloft] 100 mg PO DAILY #14 tab 08/02/17 [Rx] buPROPion XL [Wellbutrin XL] 150 mg PO DAILY #14 tab 08/02/17 [Rx] Follow up Appointment(s)/Referral(s): [facility] [Outside] - 08/03/17 (Pt. is scheduled for walk in tomorrow at [facility] between 8:30 a.m. and 5:00 pm.) Estuardo Cardenas MD [Primary Care Provider] - 1-2 days Patient Instructions/Handouts: Depression (DC), Suicide Prevention for Adults ( DC) Activity/Diet/Wound Care/Special Instructions: Take all medications as prescribed. Keep your follow up appointments. No alcohol or street drugs. Crisis line . Discharge Disposition: HOME SELF-CARE
== END 2017-08-02 14:44 | disposition home or self-care (01) | DRG 751 ==
LOC: EC 00:26 → 3MHU 02:02
PROVIDERS: ADMIT Psychiatry & Neurology Psychiatry; ATTEND Psychiatry & Neurology Psychiatry
DX: F33.2 Major depressive disorder, recurrent severe without psychotic features (principal); R45.851 Suicidal ideations; F41.1 Generalized anxiety disorder; Z79.899 Other long term (current) drug therapy
CPT/HCPCS: 80053; 80306; 81001; 82075; 84443; 85025; 99285